=== PATIENT | male | born 1930 | race Caucasian/White ===

== ENCOUNTER 2018-10-26 11:12 | Inpatient (IN) | payer MEDICARE, BC ==
[2018-10-14 09:01] LABS: HEMATOCRIT 38.3 % (42.0-52.0); HEMOGLOBIN 13.1 gm/dL (14.0-18.0); MCH 31.5 pg (26.0-34.0); MCHC 34.2 g/dL (28.0-37.0); MCV 92.3 fL (80.0-100.0); MPV 9.9 fl. (7.2-11.1); RBC 4.15 mil/uL (4.50-6.00); RDW-CV 13.4 % (10.5-14.5); WBC 9.5 thou/uL (4.0-11.0)
[2018-10-14 09:04] LABS: PROTIME 9.9 Seconds (9.20-11.50)
[2018-10-14 09:10] LABS: URINE BILIRUBIN NEGATIVE (Negative); URINE BLOOD TRACE (Negative); URINE CLARITY CLEAR; URINE COLOR YELLOW; URINE GLUCOSE-RANDOM NEGATIVE (Negative); URINE KETONES NEGATIVE (Negative); URINE LEUKOCYTES-REFLEX NEGATIVE (Negative); URINE NITRITE-REFLEX NEGATIVE (Negative); URINE PROTEIN 2+ (Negative); URINE SPECIFIC GRAVITY >= 1.030 (1.005-1.030); URINE UROBILINOGEN 0.2 E.U./dl (0.2-1.0)
[2018-10-14 09:14] LABS: ALBUMIN 3.4 g/dL (3.4-5.0); CALCIUM 8.9 mg/dL (8.5-10.1); CREATININE 2.2 mg/dL (0.6-1.3); POTASSIUM 4.3 mmol/L (3.5-5.1); TOTAL BILIRUBIN 0.4 mg/dL (<0.1-1.0); TOTAL PROTEIN 6.2 g/dL (6.4-8.2)
[2018-10-14 09:21] LABS: BACTERIA-REFLEX None Seen /HPF (None Seen); CASTS None Seen /LPF (None Seen); CRYSTALS None Seen /LPF (None Seen); SQUAMOUS 4-10 Moderate /LPF (0-3); URINE RBC 0-2 Rare /HPF (0-2); URINE WBC-REFLEX 0-5 Rare /HPF (0-5)
[~2018-10-26] VITALS: Ht 175.3 cm; Wt 87.1 kg
[~2018-10-26 11:12] MED LIST: TERAZOSIN HCL5 MG PO; TOPROL XL25 MG PO; TYLENOL EXTRA500 MG PO; ZOCOR20 MG PO
[2018-11-16] MEDS ORDERED: HYTRIN 2MG CAPSU2 M1 PO (12:15)
[2018-11-23 08:56] LABS: CALCIUM 9.4 mg/dL (8.5-10.1); CREATININE 2.4 mg/dL (0.6-1.3); POTASSIUM 4.3 mmol/L (3.5-5.1)
[2018-11-23 10:22] VITALS: BP 147/68
--- NOTE | 2018-11-23 13:44 | NUR ---
PT ADMITTED TO UNIT WITH RT KNEE REPLACEMENT. PT IS ON ROOM AIR WITH 24 HOUR CAPNO. PT HAS OCAMPO IN PLACE DUE TO SPINAL BLOCK GIVEN. WILL DC ONCE FEELING HAS RETURNED. PT HAS HEMOVAC TO RT HIP. PENNIE HOSE ON LT LEG. POLAR PACK TO RT KNEE. SCD FEET BILAT. PULSES 2+ IN ALL EXTREMITIES. SOME SWEELING TO RT HIP WITH MEPILEX DRESSING C/D/I. PT DENIES ANY PAIN CURRENTLY. FALL RISK PRECAUTIONS IN PLACE. WILL CONTINUE TO MONITOR.
[2018-11-23 13:48] VITALS: BP 126/48
[2018-11-23 16:03] VITALS: BP 140/56
--- NOTE | 2018-11-23 17:07 | NUR ---
PT REMAINED ALERT AND ORIENTED. PT C/O PAIN, MEDS GIVEN ORDERED. PT UP WITH THERAPY TO CHAIR FOR DINNER. FALL RISK PRECAUTIONS IN PLACE. HOURLY ROUNDING COMPLETED. WILL CONTINUE TO MONITOR.
--- NOTE | 2018-11-23 18:43 | NUR ---
pt requested to leave oliveira in overnight.
[2018-11-23 20:20] VITALS: BP 144/63
[2018-11-24 00:20] VITALS: BP 140/65
[2018-11-24 04:18] LABS: HEMATOCRIT 31.1 % (42.0-52.0); HEMOGLOBIN 10.5 gm/dL (14.0-18.0)
[2018-11-24 04:47] VITALS: BP 140/70
--- NOTE | 2018-11-24 05:05 | NUR ---
PATIENT HAS REMAINED ALERT AND ORIENTED X 4 THROUGHOUT THE SHIFT AND RESTING QUIETLY ON HOURLY ROUNDS. MOVING SELF IN BED WITH CUEING. ABLE TO LIFT RIGHT LEG TO ASSIST APPLICATION OF CPM. CPM FIRST SESSION AT HS. TOLERATED WELL. DRESSING RIGHT KNEE CLEAN AND DRY WITH HEMOVAC PRESENT. BILATERAL PENNIE HOSE. BILAT FOOT PUMPS AND POLARCARE TO RIGHT KNEE ON AND FUNCTIONING. MEDICATED FOR PAIN X 3 OF THIS WRITING WITH GOOD EFFECT. NO NAUSEA. TOLERTING FLUIDS AND ADEQUATE URINE OUTPUT. OCAMPO CATHETER AND HEMOVAC TO BE DISCONTINUED THIS AM. VITAL SIGNS STABLE. HOME CPAP ON OVERNIGHT WITH CONTINUOUS OXIMETRY WITHIN NORMAL LIMITS. FAMILY TAKING SHIFT AT BEDSIDE OVERNIGHT. CONTINUE TO MONITOR.
--- NOTE | 2018-11-24 06:43 | NUR ---
HEMOVAC DRAIN DISCONTINUED PER ORDER WITHOUT DIFFICULTY. PRESSURE DRESSING APPLIED.
[2018-11-24 08:30] VITALS: BP 154/62
[2018-11-24] MEDS ORDERED: PERCOCET PO (11:38)
[2018-11-24] MEDS ORDERED: XARELTO10 MG PO (11:41)
[2018-11-24] MEDS ORDERED: COLACE100 MG PO (11:42)
[2018-11-24 11:44] VITALS: BP 154/62
--- NOTE | 2018-11-24 12:00 | NUR ---
SPOKE WITH PT.AND DAUGHTER IN LAW,HAYLIE. PT.LIVES WITH HAYLIE AND HER IN [place]. CAME TRAVIS FOR SURGERY. THEY ARE DRIVING BACK TO [place] TODAY AFTER PT.IS RELEASED. HE HAS A WALKER IN HIS ROOM HERE AT HOSPITAL. HAYLIE WILL BE WITH HIM WHEN HE IS AT HOME. SHE IS A PHYSICAL THERAPIST AND WILL BE DOING HIS THERAPY UNTIL FOLLOW UP WITH DR. SCHNEIDER. THEY WILL THEN DO OUTPT. THERAPY IN [place]. PT.IS NORMALLY INDEPENDENT AND ACTIVE AT HOME. PER REQUEST, CALLED IN XARELTO PRESCRIPTION WRITTEN TO [facility] IN [place], SO THEY CAN PICK IT UP ON WAY OUT OF TOWN. HAYLIE WILL EITHER BRIN CPM BACK WHEN PT.IS FINISHED WITH IT OR [facility] IN [place] WILL PICK IT UP. POLAR PACK IS HIS TO TAKE AND THEY ARE AWARE. NO OTHER QUESTIONS AT THIS TIME.
--- NOTE | 2018-11-24 13:08 | NUR ---
RECIEVED O.T. ORDERS. WILL DEFER TO P.T. AND NURSING. PLEASE ORDER FURTHER O.T. SERVICES IF NEEDED.
--- NOTE | 2018-11-24 18:10 | NUR ---
PT GIVEN DISCHARGE INFORMATION, CARE NOTES, AND PRESCRIPTIONS GIVEN. IV REMOVED. PT BELONGINGS GATHERED. PT LEFT VIA WHEELCHAIR WITH NURSING STAFF TO HOME CARE. FALL RISK PRECAUTIONS IN PLACE. HOURLY ROUNDING COMPLETED. WILL CONTINUE TO MONITOR. CPM LEFT WITH PT.
[2018-11-24 18:12] VITALS: BP 154/62
--- NOTE | 2018-11-25 14:44 | OP ---
[facility] [address] [place] [address] OPERATIVE REPORT Name: LRJOSE Ferrer Room: [address] [place] .R.#: [id number] Admission: 11/23/18 Attend Phys: Kaitlin Roldan Discharge: 11/24/18 Date of : 34 Report #: [id number] THIS REPORT FOR: //name// CC: Physician staff Samuel Card DATE OF SERVICE: 11/23/2018 PREOPERATIVE DIAGNOSIS: Right knee osteoarthritis. POSTOPERATIVE DIAGNOSIS: Right knee osteoarthritis. PROCEDURE: Right total knee arthroplasty with Navio. ANESTHESIA: General endotracheal. ESTIMATED BLOOD LOSS: 50 mL. ANTIBIOTICS: Ancef preoperatively. DRAINS: Medium Hemovac. COMPLICATIONS: None. CONDITION: The patient is stable to recovery room. IMPLANTS: Listed in the operative record and progress note. BRIEF HISTORY: The patient is seen in the preoperative area. Preoperative H and P was performed. Site was marked. Questions were answered. Risks and benefits were discussed with the patient in detail about the surgery. The patient wished to proceed assuming all risks. DESCRIPTION OF PROCEDURE: The patient was taken to the operative suite and placed supine on the operating table and given appropriate anesthesia. A well-padded tourniquet applied to the upper thigh, was inflated to 300 mmHg after gravity exsanguination. The operative knee was sterilely prepped and draped. Surgery began by midline incision. This was carried down through the subcutaneous tissues. A medial parapatellar arthrotomy was performed and carried down to bone. Patella was everted and excess soft tissues were removed from the femur. Osteophytes were also removed. The Navio pins were then placed in the femur and tibia. The Navincrediblue software was aligned and the knee was registered in appropriate fashion. Once the robotic assistance was activated, these guide pin holes were then placed along the femur and tibia. The femoral cutting block was then applied, checked with the [place] [address] OPERATIVE REPORT Name: JOSE LR Room: [address] [place] [facility].#: [id number] Admission: 11/23/18 Attend Phys: Kaitlin Roldan Discharge: 11/24/18 Date of : 34 Report #: [id number] and slope, pinned in appropriate position and appropriate cut was made. The 4-in-1 cutting block was then aligned, checked with Navio for appropriate alignment, pinned in appropriate position and appropriate cuts were made. Attention was then turned to the tibia. The tibial alignment guide was then applied, checked with ADOR robot for appropriate alignment, pinned in appropriate position and appropriate cuts were made. Bone was removed and excess soft tissues and meniscus were removed from around the tibia. The tibial baseplate was then applied, checked for rotational alignment with the drop kanwal, pinned in appropriate position. The femur was then applied and box cut was reamed. This was then trialed with the appropriate spacer, which showed excellent fit and fill and excellent stability of the knee throughout range of motion as well as in the Navio software. The patella was then reamed in appropriate fashion and sized to appropriate size. Three peg holes were drilled. It was then trialed and found to have excellent flexion and extension and excellent tracking of the patella within the groove. These trials were removed. The tibia was punched in appropriate fashion. Bone ends were cleansed with Pulsavac irrigation and cement was mixed and applied to the final implants. These were malleted into position and held the knee in extension and compressed to allow the cement to cure. After it cured, excess was removed using a Orange and osteotome. The wound was then copiously irrigated. A final spacer was then malleted in position. The tourniquet was deflated. Hemostasis was obtained with electrocautery. The pain cocktail was injected. PRP gel was sprayed throughout the internal aspect of the knee. Medium Hemovac drain was applied. Capsule was closed with #2 FiberWire and 1 Vicryl in [id number] fashion. Skin was closed with 2-0 Vicryl and running 3-0 Monocryl and the pin sites were closed with nylon. Sterile dressing was applied as well as Dermabond. Kwaku wrap and PolarCare applied. The patient transported to recovery room in stable condition. Counts were correct throughout the procedure. <ELECTRONICALLY SIGNED> By: Samuel Garcia II, DO 11/25/18 [id number] Garcia II, DO /nt
== END 2018-11-24 18:13 | disposition home or self-care (01) | DRG 470 ==
LOC: M.PRE 11:12 → M.TBA 11-23 08:17 → M.ORTHSURG 11-23 08:17 → M.PRE 11-23 12:18 → M.ORTHSURG 11-23 13:11 → M.PRE 11-23 14:18 → M.ORTHSURG 11-24 18:13
PROVIDERS: Orthopaedic Surgery; Student in an Organized Health Care Education/Training Program; ADMIT Internal Medicine
PROC: 0SRC0J9 Replacement of Right Knee Joint with Synthetic Substitute, Cemented, Open Approach (ICD-10-PCS; principal; 2018-11-24)
PROC: 8E0Y0CZ Robotic Assisted Procedure of Lower Extremity, Open Approach (ICD-10-PCS; 2018-11-24)
DX: M17.11 Unilateral primary osteoarthritis, right knee (principal); I25.10 Atherosclerotic heart disease of native coronary artery without angina pectoris; E78.5 Hyperlipidemia, unspecified; N40.0 Benign prostatic hyperplasia without lower urinary tract symptoms; G89.29 Other chronic pain; I12.9 Hypertensive chronic kidney disease with stage 1 through stage 4 chronic kidney disease, or unspecified chronic kidney disease; N18.9 Chronic kidney disease, unspecified; Z88.8 Allergy status to other drugs, medicaments and biological substances; Z79.899 Other long term (current) drug therapy; Z95.0 Presence of cardiac pacemaker; Z98.42 Cataract extraction status, left eye; Z98.41 Cataract extraction status, right eye; Z85.828 Personal history of other malignant neoplasm of skin; Z95.1 Presence of aortocoronary bypass graft; Z82.49 Family history of ischemic heart disease and other diseases of the circulatory system